=== PATIENT | female | born 1970 ===

== ENCOUNTER 2017-03-07 09:10 | Emergency (ER) | payer MEDICAID ==
[2017-03-07 09:59] LABS: RBC URINE 1 /hpf (0-3); URINE BILIRUBIN NEGATIVE (NEGATIVE); URINE BLOOD NEGATIVE (NEGATIVE); URINE COLOR Yellow (YELLOW); URINE GLUCOSE (UA) 3+ mg/dL (Normal); URINE HYALINE CAST 0-2 /lpf (0-2); URINE KETONE TRACE mg/dL (NEGATIVE); URINE LEUKOCYTE ESTERASE NEG Leu/uL (Negative); URINE PROTEIN NEGATIVE (NEGATIVE); URINE UROBILINOGEN NORMAL mg/dL (0.2-1.0); WBC URINE 2 /hpf (0-5)
[2017-03-07] MEDS ORDERED: Sodium Chloride 0.9% 1,000 ML IV ONE ×2 (10:09→12:18)
[2017-03-07] MEDS ORDERED: Sodium Chloride 0.9% 1,000 ML ONE ×2 (10:10→12:18)
--- NOTE | 2017-03-07 10:18 | C.PDOC ---
History Of Present Illness Patient is a 46 year old female who presents to the ER with a complaint of non- radiating right upper quadrant pain. Patient reports having a nausea and 2 episodes of vomiting. Patient notes having similar episodes in January. Patient has a history of hypertension and diabetes. Denies any fever, chills or diarrhea. Time Seen by Provider: 03/07/17 09:24 Chief Complaint (Nursing): Abdominal Pain History Per: Patient History/Exam Limitations: no limitations Onset/Duration Of Symptoms: Unknown Current Symptoms Are (Timing): Still Present Location Of Pain/Discomfort: RUQ Radiation Of Pain To:: None Associated Symptoms: Nausea, Vomiting. denies: Fever, Chills, Diarrhea Past Medical History Reviewed: Historical Data, Nursing Documentation, Vital Signs Vital Signs: Last Vital Signs Temp 97.8 F 03/07/17 11:54 Pulse 65 03/07/17 11:54 Resp 16 03/07/17 11:54 BP 129/82 03/07/17 11:54 Pulse Ox 97 03/07/17 14:56 Family History: States: Unknown Family Hx - Social History Hx Alcohol Use: No Hx Substance Use: No - Immunization History Hx Tetanus Toxoid Vaccination: No Hx Influenza Vaccination: No Hx Pneumococcal Vaccination: No Review Of Systems Constitutional: Negative for: Fever, Chills Cardiovascular: Negative for: Palpitations Respiratory: Negative for: Shortness of Breath Gastrointestinal: Positive for: Vomiting, Abdominal Pain. Negative for: Nausea , Diarrhea Physical Exam - Physical Exam Appears: Non-toxic, Other (Uncomfortable) Skin: Normal Color, Warm, Dry Head: Atraumatic, Normacephalic Oral Mucosa: Dry Cardiovascular: Rhythm Regular, No Murmur Respiratory: Normal Breath Sounds, No Rales, No Rhonchi, No Wheezing Gastrointestinal/Abdominal: Bowel Sounds (Normal), Soft, Other (Epigastric & RUQ pain with + springer's sign) Back: No CVA Tenderness Neurological/Psych: Oriented x3, Normal Speech, Normal Cognition ED Course And Treatment - Laboratory Results Result Diagrams: 03/07/17 10:39 03/07/17 10:39 O2 Sat by Pulse Oximetry: 97 (room air) Pulse Ox Interpretation: Normal - CT Scan/US US - Abdomen Other Rad Studies (CT/US): Read By Radiologist, Radiology Report Reviewed CT/US Interpretation: HISTORY: abd pain ruq. COMPARISON: None available. TECHNIQUE: Sonographic evaluation of the right upper quadrant of the abdomen. FINDINGS: LIVER: Measures 15.8 cm in length. Echogenic liver may be seen in setting of hepatic parenchymal disease or fatty infiltration. Suspected focal fatty sparing measuring approximately 2.0 x 2.4 x 2.6 cm. Main portal vein appears patent with normal directional flow. No intrahepatic bile duct dilatation. GALLBLADDER: Gallstones. Gallbladder sludge. No gallbladder wall thickening or pericholecystic edema. Positive sonographic Springer's sign as assessed by the creative services coordinator. COMMON BILE DUCT: Measures 3 mm. PANCREAS: Not well-visualized. RIGHT KIDNEY: Measures 9.6 x 4.3 x 4.9 cm. No obstructing calculus or hydronephrosis appreciated. AORTA: Limited visualization appears grossly unremarkable. IVC: Limited visualization appears grossly unremarkable. OTHER FINDINGS: None . IMPRESSION: Gallstones and gallbladder sludge. Positive sonographic Springer's sign as assessed by the creative services coordinator. The gallbladder wall does not appear thickened. Correlate clinically for cholecystitis. Echogenic liver may be seen in setting of hepatic parenchymal disease or fatty infiltration. 2.0 x 2.4 x 2.6 cm region of suspected focal fatty sparing. Progress Note: Blood work and abdomen US ordered. IV fluids and toradol IVP administered. Medical Decision Making Medical Decision Making: pt much more comfortable after toradaol. await results of ultrasound. 255 pt feeling better, tolerating po fluids. pt to be dischagred with outpatient surgical follow up for eval for cholecystectomy. pt advised to return to er for worse pain. fever. vomiting or other concerns,. eat a lot fat diet. Disposition Counseled Patient/Family Regarding: Studies Performed, Diagnosis, Need For Followup - Disposition Referrals: Consuelo Rey MD [Staff Provider] - Disposition: HOME/ ROUTINE Disposition Time: 14:57 Condition: IMPROVED Instructions: Biliary Colic (ED) Forms: Gen Discharge Inst Persian - Clinical Impression Clinical Impression: Biliary colic - Scribe Statement The provider has reviewed the documentation as recorded by the Scribsola Rizzo All medical record entries made by the Scribe were at my direction and personally dictated by me. I have reviewed the chart and agree that the record accurately reflects my personal performance of the history, physical exam, medical decision making, and the department course for this patient. I have also personally directed, reviewed, and agree with the discharge instructions and disposition.
[2017-03-07 10:46] LABS: BASO # 0.1 K/uL (0.0-0.2); BASO % 0.6 % (0.0-2.0); EOS # 0.1 K/uL (0.0-0.7); EOS % 1.4 % (0.0-4.0); HEMATOCRIT 39.8 % (34.0-47.0); LYMPH # 3.8 K/uL (1.0-4.3); LYMPH % 43.6 % (20.0-40.0); MEAN CELL VOLUME 89.1 fL (81.0-99.0); MEAN CORPUSCULAR HEMOGLOBIN 28.9 pg (27.0-31.0); MEAN CORPUSCULAR HGB CONC 32.5 g/dL (33.0-37.0); MEAN PLATELET VOLUME 9.9 fL (7.2-11.7); MONO # 0.5 K/uL (0.0-0.8); MONO % 5.6 % (0.0-10.0); RED CELL DISTRIBUTION WIDTH 13.4 % (11.5-14.5); WHITE BLOOD COUNT 8.8 K/uL (4.8-10.8)
[2017-03-07 10:51] LABS: CHLORIDE 98 mmol/L (98-107)
[2017-03-07 10:52] LABS: POTASSIUM 3.7 mmol/L (3.6-5.2); SODIUM 137 mmol/L (132-148)
[2017-03-07 10:54] LABS: AST/SGOT 30 U/L (14-36); BILIRUBIN,TOTAL 0.3 mg/dL (0.2-1.3); CARBON DIOXIDE 25 mmol/L (22-30); GFR AFRICAN-AMERICAN > 60
[2017-03-07 10:55] LABS: ALB/GLOB RATIO 1.2 (1.0-2.1); ALKALINE PHOSPHATASE 72 U/L (38-126); ALT/SGPT 38 U/L (9-52); BLOOD UREA NITROGEN 23 mg/dL (7-17); GLUCOSE,RANDOM 333 mg/dL (65-105); TOTAL PROTEIN 7.4 g/dL (6.3-8.3)
--- NOTE | 2017-03-07 11:59 | US ---
HISTORY: abd pain ruq COMPARISON: None available. TECHNIQUE: Sonographic evaluation of the right upper quadrant of the abdomen. FINDINGS: LIVER: Measures 15.8 cm in length. Echogenic liver may be seen in setting of hepatic parenchymal disease or fatty infiltration. Suspected focal fatty sparing measuring approximately 2.0 x 2.4 x 2.6 cm. Main portal vein appears patent with normal directional flow. No intrahepatic bile duct dilatation. GALLBLADDER: Gallstones. Gallbladder sludge. No gallbladder wall thickening or pericholecystic edema. Positive sonographic Springer's sign as assessed by the lead sustainability specialist. COMMON BILE DUCT: Measures 3 mm. PANCREAS: Not well-visualized. RIGHT KIDNEY: Measures 9.6 x 4.3 x 4.9 cm. No obstructing calculus or hydronephrosis appreciated. AORTA: Limited visualization appears grossly unremarkable. IVC: Limited visualization appears grossly unremarkable. OTHER FINDINGS: None . IMPRESSION: Gallstones and gallbladder sludge. Positive sonographic Springer's sign as assessed by the lead sustainability specialist. The gallbladder wall does not appear thickened. Correlate clinically for cholecystitis. Echogenic liver may be seen in setting of hepatic parenchymal disease or fatty infiltration. 2.0 x 2.4 x 2.6 cm region of suspected focal fatty sparing.
[2017-03-07 15:21] VITALS: BP 125/79; PULSE 72; RESP 19; TEMP 97.5; O2SAT 98
== END 2017-03-07 15:21 | disposition home or self-care (01) ==
LOC: C.ER 09:10
DX: K80.50 Calculus of bile duct without cholangitis or cholecystitis without obstruction (principal)
CPT/HCPCS: 76705; 80053; 81001; 82948; 83690; 84703; 85025; 96361; 96374; 99285; J1885; J7040